=== PATIENT | male | born 1955 | race Caucasian/White ===

== ENCOUNTER 2018-11-26 09:39 | Day surgery (SDC) | payer OTHER, SELFPAY ==
--- NOTE | 2018-11-26 | PATH_ITS ---
[facility] Accession Number: [id number] . 01 Material submitted: . TRANSVERSE COLON POLYP . 02 Diagnosis: Transverse Colon, Polyp: Superficial portion of colorectal mucosa x1 with no significant histomorphologic abnormality. Additional levels through the block are noncontributory. MRV/11/27/2018 . 02 Electronically signed: . Yesika Tejeda MD, Pathologist NPI- [id number] . 01 Gross description: . TRANSVERSE COLON POLYP: Received in formalin is 1 mckinnon mucoid fragments measuring 0.3 x 0.3 x 0.3 cm. Entirely submitted in 1 cassette. /DMC /DMC . 02 Pathologist provided ICD-10: Z00.01 . 02 CPT . 857684 Performed at: 01 [facility] [address] [id number] MD Wilfredo Hicks MD Phone: [phone] Performed at: 02 [facility] [address] [place], [place] [id number] MD Jaida Smalls MD Phone: [phone]
[2018-11-26 10:13] VITALS: BP 134/82; PULSE 84; RESP 20; TEMP 35.9; O2SAT 99; BMI 26.4
[2018-11-26] MEDS: SODIUM CHLORIDE 0.9% 1,000 ML 200 ML IV (10:25)
--- NOTE | 2018-11-26 11:31 | PM.HP.1 ---
History of Present Illness Chief complaint: [id number] Patient History Social History household members: spouse Family & Social History Social History: household members spouse Meds Home Medications Medication Instructions Recorded Confirmed Type lisinopril 20 mg DAILY 11/26/18 11/26/18 History Allergies Allergy/AdvReac Type Severity Reaction Status Date / Time No Known Drug Allergies Allergy Verified 11/26/18 10:11 Review of Systems Review of Systems All systems reviewed & are unremarkable except as noted in HPI and below Exam Vital Signs (past 8 hours): - 11/26/18 10:13 Temperature 96.7 F L Pulse Rate 84 Respiratory Rate 20 Blood Pressure 134/82 Pulse Oximetry 99 Oxygen Delivery Method Room Air Narrative Exam Narrative: Awake alert and oriented x3, pupils equal round reactive to light, heart regular rate and rhythm, lungs clear to auscultation bilaterally, abdomen soft nontender nondistended, lower extremities without edema Assessment & Plan Assessment & Plan narrative: Colon cancer screening for colonoscopy
[2018-11-26] MEDS: fentaNYL 250 MCG/5 ML INJ IV (11:50)
[2018-11-26] MEDS: MIDAZOLAM 5 MG/5 ML VIAL IV (11:51)
[2018-11-26 12:00] VITALS: BP 99/65; PULSE 70; RESP 18; TEMP 36.6; O2SAT 95
--- NOTE | 2018-11-26 12:00 | PM.OP.ENDO ---
Operative Date/Time/Diagnoses Date of procedure: 11/26/18 Procedure & Clinicians Study performed: Colonoscopy Indications: Colon cancer screening. Last colonoscopy was >10yrs ago Moderate conscious sedation was administered by the endoscopy nurse and supervised by the endoscopist. The following parameters were monitored: Oxygen saturation, heart rate, blood pressure, and response to care. Sedation: 6 mg midazolam, 100 micro g fentanyl Procedure Notes Procedure in detail: Prior to the procedure, history and physical was performed, and patient medications and allergies were reviewed. Preprocedure nursing history and assessment was reviewed. Patient identification and proposed procedure were verified by the physician and nurse in the procedure room. The physical status of the patient was reassessed after the procedure. After informed consent was obtained including risks, benefits, and alternatives, the scope was passed under direct vision. Throughout the procedure, the patient's blood pressure, pulse, and oxygen saturations were monitored continuously. The colonoscope was introduced through the anus and advanced to the cecum as identified by the appendiceal orifice and ileocecal valve. The patient tolerated the procedure well. Bowel prep was deemed adequate to detect polyps greater than 5 mm. PRIYANKA and perianal examinations were unremarkable. Retroflexion in the rectum revealed grade 1 internal hemorrhoids. A few medium-size diverticuli were noted in the sigmoid colon The colon was otherwise normal appearing Impression: Internal hemorrhoids Sigmoid colon diverticulosis No specimens obtained Sedation minutes: 19 Complications: other (EBL none. No complications) Plan for aftercare: Recommendations: Repeat colonoscopy in 10 years for screening purposes Resume home medications High fiber diet Discharged home with escort
[2018-11-26 12:05] VITALS: BP 99/62; PULSE 65; RESP 17; TEMP 36.6; O2SAT 93
[2018-11-26 12:15] VITALS: BP 105/73; PULSE 74; RESP 20; TEMP 36.6; O2SAT 98
[2018-11-26 12:17] VITALS: BP 104/74; PULSE 67; RESP 19; TEMP 36.6; O2SAT 95
== END 2018-11-26 12:33 | disposition home or self-care (01) ==
PROVIDERS: PCP Family Medicine; Visit Provider Internal Medicine
PROC: 0DJD8ZZ Inspection of Lower Intestinal Tract, Via Natural or Artificial Opening Endoscopic (ICD-10-PCS; CPT 45378; principal; 2018-11-26 11:00)
DX: Z12.11 Encounter for screening for malignant neoplasm of colon (principal); K57.30 Diverticulosis of large intestine without perforation or abscess without bleeding; K64.0 First degree hemorrhoids; D12.3 Benign neoplasm of transverse colon
CPT/HCPCS: 45380; J2250; J3010

== ENCOUNTER → 2023-05-27 14:07 | Outpatient (CLI) | payer OTHER, SELFPAY ==
[2023-05-27 15:34] LABS: Hematocrit 43.9 % (41-53); Hemoglobin 15.5 g/dL (13.5-17.5); Mean Corpuscular HGB Conc 35.3 % (30-36); Mean Corpuscular Hemoglobin 32.6 PG (26-34); Mean Corpuscular Volume 92.6 fL (80-100); Platelet Count 185 X10^3/uL (150-400); Red Blood Cell Count 4.75 X10^6/uL (4.5-5.9); Red Cell Distribution Width 13.3 % (11.6-14.8); White Blood Cell Count 4.7 X10^3/uL (4.5-11.0)
[2023-05-27 16:09] LABS: Alanine Aminotransferase 31 IU/L (<50); Albumin 4.2 g/dL (3.5-5.0); Albumin Globulin Ratio 1.6 (1.0-2.8); Alkaline Phosphatase 69 U/L (38-126); Aspartate Aminotransferase 35 IU/L (17-59); BUN Creatinine Ratio 17.4 (6-22); Bilirubin Total 0.6 mg/dL (0.2-1.3); Blood Urea Nitrogen 15 mg/dL (9-20); Calcium 9.5 mg/dL (8.4-10.2); Carbon Dioxide 26 mmol/L (22-32); Chloride 105 mmol/L (98-107); Cholesterol 183 mg/dL (140-199); Estimated Glomerular Filt Rate > 60 mL/min (>60); Globulin 2.7 g/dL (1.7-4.1); Glucose 95 mg/dL (80-110); HDL Cholesterol 61 mg/dL (40-60); HEMOLYSIS 31 (0-50); LDL Cholesterol Calculated 86 mg/dL (<100); Potassium 4.2 mmol/L (3.4-5.1); Sodium 137 mmol/L (137-145); Total Protein 6.9 g/dL (6.3-8.2); Triglycerides 179 mg/dL (35-150)
[2023-05-27 16:39] LABS: Prostate Specific Antigen 3.57 ng/mL (0.10-4.00)
== END ==
PROVIDERS: PCP Internal Medicine; Referring Provider Internal Medicine; Visit Provider Internal Medicine
DX: E78.2 Mixed hyperlipidemia (principal); I10 Essential (primary) hypertension; N13.8 Other obstructive and reflux uropathy; N40.1 Benign prostatic hyperplasia with lower urinary tract symptoms
CPT/HCPCS: 36415; 80053; 80061; 84153; 84443; 85027

== ENCOUNTER → 2025-05-11 10:53 | Outpatient (CLI) | payer MEDICARE, OTHER, SELFPAY ==
[2025-05-11 12:30] LABS: Prostate Specific Antigen 4.71 ng/mL (0.10-4.00)
== END ==
PROVIDERS: PCP Internal Medicine; Referring Provider Internal Medicine; Visit Provider Internal Medicine
DX: N40.1 Benign prostatic hyperplasia with lower urinary tract symptoms (principal); N13.8 Other obstructive and reflux uropathy; Z87.898 Personal history of other specified conditions
CPT/HCPCS: 36415; 84153